=== PATIENT | male | born 1955 | race Caucasian/White ===

== ENCOUNTER 2019-01-26 16:27 | Inpatient (IN) | payer OTHER ==
[~2019-01-26] VITALS: Ht 172.7 cm; Wt 100.6 kg
[~2019-01-26 16:27] MED LIST: AMLO5 PO; ASPI325 PO; ATOR80 PO; CHLO25B PO; LISI20 PO; METO25 PO
[2019-01-26 16:58] LABS: BASOPHILS ABSOLUTE AUTO 0.05 K/mm3 (0.00-0.23); BASOPHILS PERCENT AUTO 0 % (0-2); EOSINOPHILS ABSOLUTE AUTO 0.13 K/mm3 (0.00-0.68); EOSINOPHILS PERCENT AUTO 1 % (0-6); Hematocrit 45.1 % (37.0-53.0); Hemoglobin 15.2 g/dL (13.5-17.5); IMMATURE GRAN ABSOLUTE AUTO 0.04 K/mm3 (0.00-0.10); IMMATURE GRAN PERCENT AUTO 0 % (0-1); LYMPHOCYTES ABSOLUTE AUTO 2.89 K/mm3 (0.84-5.20); LYMPHOCYTES PERCENT AUTO 26 % (21-46); MONOCYTES ABSOLUTE AUTO 0.82 K/mm3 (0.16-1.47); MONOCYTES PERCENT AUTO 7 % (4-13); Mean Corpuscular HGB 31.6 pg (26.0-34.0); Mean Corpuscular HGB Conc 33.7 g/dL (31.5-36.5); Mean Corpuscular Volume 94 fL (80-100); Mean Platelet Volume 10.1 fL (9.1-12.4); NEUTROPHILS ABSOLUTE AUTO 7.19 K/mm3 (1.96-9.15); NEUTROPHILS PERCENT AUTO 65 % (41-73); Platelet Count 215 K/mm3 (150-400); RDW Standard Deviation 41.8 fL (35.1-46.3); Red Blood Cell Count 4.81 M/mm3 (4.30-5.90); White Blood Cell Count 11.12 K/mm3 (4.00-11.30)
[2019-01-26 17:20] LABS: Albumin, Blood 3.6 g/dL (3.4-5.0); Albumin/Globulin Ratio 0.8 (0.8-1.8); Bilirubin, Total 0.9 mg/dL (0.1-1.0); Bun/Creatinine Ratio 16.8 (12.0-20.0); Calcium, Blood 8.7 mg/dL (8.5-10.1); Creatinine, Blood 1.37 mg/dL (0.60-1.20); Globulin, Blood 4.5 g/dL (2.2-4.0); Potassium, Blood 3.6 mmol/L (3.5-5.5); Total Protein, Blood 8.1 g/dL (6.4-8.2); Troponin I 0.169 ng/mL (0.000-0.040)
[2019-01-26 17:36] LABS: PCO2 Arterial 31.4 mmHg (35-45); PO2 Arterial 64.8 mmHg (80-100); pH Blood Arterial 7.46 (7.35-7.45)
[2019-01-26] MEDS ORDERED: HYDCHL25 PO (18:30)
[2019-01-26] MEDS ORDERED: CLON.1 PO (18:31)
--- NOTE | 2019-01-26 21:12 | NUR ---
ASSUMED PT CARE AT 1900 PT ARRIVED ON UNIT FROM ED SECONDARY TO PULMONARY EMBOLUS. PT IS ALERT AND ORIENTED. ABLE TO MAKE NEEDS KNOWN. OXYGEN AT 2L VIA NC WITH BIOX AT 97%. PT NOTED TO BECOME VERY SOB WITH MINIMAL EXERTION. HR 120'S WITH SINUS TACH NOTED ON HEART MONITOR. BP ELEVATED WITH SBP 180'S. PT APPEARS VERY NON-COMPLIANT WITH MEDICATIONS HE STATED HE "CHOOSES" WHEN HE WANTS TO BE DONE TAKING MEDICATIONS. STATES HE "HATES" TAKING MEDICATIONS AND FEELS HE DOESN'T NEED MOST OF WHAT HE IS TAKING. EDUCATION PROVIDED REGARDING CURRENT STATE OF AFFAIRS, WELL CURRENT VITAL SIGNS SHOWING OTHERWISE. EDUCATION PROVIDED REGARDING POSSIBLE OUTCOMES OF NON-COMPLIANCE WITH MEDICATIONS. PT APPEARS UNDERSTANDING, BUT CONTINUES TO REQUIRE REINFORCEMENT AND ONGOING EDUCATION. APPEARS KNOWLEDGABLE OF PT'S DISEASE PROCESSES AND WAS RECEPTIVE TO EDUCATION. HEPARIN GTT STARTED AT 15UNITS/KG/HR, WELL LR AT 100MLS/HR. PT DENIES ANY PAIN OR DISCOMFORT. CALL LIGHT WITHIN REACH AND HE IS ABLE TO MAKE NEEDS KNOWN.
[2019-01-26] MEDS ORDERED: FAMO40 PO (21:26)
[2019-01-26] MEDS ORDERED: LOSA50 PO (21:28)
--- NOTE | 2019-01-26 22:14 | NUR ---
PT NOTED TO BE COUGHING CONTINUOUSLY WITH NO RELIEF. NONPRODUCTIVE AND PT FEELS SOB AT REST. SAT ALL THE WAY UP IN BED. LUNG SOUNDS ARE CLEAR T/O ALL LOBES. BIOX 97% WITH OXYGEN AT 2L VIA NC. CALL PLACED TO MEHRDAD CARBAJAL. STATED SHE WOULD ENTER ORDERS FOR MORPHINE AND LOZENGES.
[2019-01-27 03:10] LABS: BASOPHILS ABSOLUTE AUTO 0.02 K/mm3 (0.00-0.23); BASOPHILS PERCENT AUTO 0 % (0-2); EOSINOPHILS PERCENT AUTO 1 % (0-6); Hematocrit 42.8 % (37.0-53.0); Hemoglobin 14.5 g/dL (13.5-17.5); IMMATURE GRAN ABSOLUTE AUTO 0.02 K/mm3 (0.00-0.10); IMMATURE GRAN PERCENT AUTO 0 % (0-1); LYMPHOCYTES ABSOLUTE AUTO 2.16 K/mm3 (0.84-5.20); LYMPHOCYTES PERCENT AUTO 23 % (21-46); MONOCYTES ABSOLUTE AUTO 0.81 K/mm3 (0.16-1.47); MONOCYTES PERCENT AUTO 9 % (4-13); Mean Corpuscular HGB 31.8 pg (26.0-34.0); Mean Corpuscular HGB Conc 33.9 g/dL (31.5-36.5); Mean Corpuscular Volume 94 fL (80-100); Mean Platelet Volume 9.8 fL (9.1-12.4); NEUTROPHILS ABSOLUTE AUTO 6.33 K/mm3 (1.96-9.15); NEUTROPHILS PERCENT AUTO 67 % (41-73); Platelet Count 207 K/mm3 (150-400); RDW Coefficient Variation 12.1 % (11.7-14.2); Red Blood Cell Count 4.56 M/mm3 (4.30-5.90); White Blood Cell Count 9.44 K/mm3 (4.00-11.30)
[2019-01-27 03:28] LABS: Alanine Aminotransfer (ALT/SGP 114 U/L (12-78); Albumin, Blood 3.4 g/dL (3.4-5.0); Albumin/Globulin Ratio 0.8 (0.8-1.8); Alk Phos 58 U/L (50-136); Anion Gap 10 mmol/L (6-16); Aspartate Aminotrans (AST/SGOT 55 U/L (12-37); Bilirubin, Total 0.6 mg/dL (0.1-1.0); Blood Urea Nitrogen 18 mg/dL (8-24); Bun/Creatinine Ratio 16.5 (12.0-20.0); CO2, Blood 23 mmol/L (21-32); Calcium, Blood 8.6 mg/dL (8.5-10.1); Chloride, Blood 109 mmol/L (98-108); Creatinine, Blood 1.09 mg/dL (0.60-1.20); Globulin, Blood 4.2 g/dL (2.2-4.0); Glomerular Filtration Rate >60 (60-); Glucose, Blood 104 mg/dL (70-99); Potassium, Blood 3.7 mmol/L (3.5-5.5); Sodium, Blood 142 mmol/L (136-145); Total Protein, Blood 7.6 g/dL (6.4-8.2)
--- NOTE | 2019-01-27 06:01 | NUR ---
END OF SHIFT SUMMARY NO SIGNIFICANT CHANGES SINCE ASSUMPTION OF CARE NOTE. PT IS UP IN RECLINER IT IS MORE COMFORTABLE FOR HIM. HE IS ABLE TO COMPLETELY REPOSITION SELF INDEPENDENTLY. NO C/O CHEST PAIN. HAS A VERY DRY, BUT PRODUCTIVE COUGH. UNABLE TO ASSESS SPUTUM, BUT PT STATES IT IS THICK AND CLEAR. LUNG SOUNDS REMAIN CLEAR T/O ALL LOBES. 2L VIA NC WITH BIOX >95%. PT C/O SOB WITH MINIMAL EXERTION. PT HAS BEEN SINUS TACHY T/O SHIFT; HR DOWN TO 105. HEPARIN GTT INFUSING AT 16UNITS/KG/HR PER PHARMACY CONSULT. CALL LIGHT WITHIN REACH. WILL CONTINUE TO MONITOR UNTIL REPORT IS HANDED OFF TO ONCOMING RN.
--- NOTE | 2019-01-27 08:00 | NUR ---
INITIAL ASSESMENT PT VERY PLEASENT, CALM AND COOPRATIVE, ALERT AND ORIENT TIMES FOUR AND FOLLOWING ALL COMMANDS. HYPERTENSIVE IN ST AND PALP PULSES T/O WITH NO EDEMA WITH HEPARIN QTT INFUSING PER MD ORDER. 2L NC WITH SATS WNL, CLEAR AND DIM BILAT WITH FREQUENT DRY STRONG NON PRODUCTIVE COUGH. TOLERATING DIET WITH ABD SOFT ROUND AND NON TENDER WITH BT'S T/O NO BM. VOIDING VIA URINAL CLEAR DARK FABIOLA URINE. SKIN INTACT. ECHO AND VENOUS US TO FOLLOW. WILL CONT TO MONITOR
--- NOTE | 2019-01-27 10:51 | NUR ---
ECHOCARDIOGRAM COMPLETED
--- NOTE | 2019-01-27 16:03 | NUR ---
PT UPDATE MD AT BEDSIDE TO CONSENT PATIENT FOR CARDIAC INTERVENTION
--- NOTE | 2019-01-27 21:00 | NUR ---
ASSUMED PT CARE AT 1900 PT ARRIVED FROM [employer]ITIES ANALYST WITH RIGHT GROIN SHEATH IN PLACE WITH TWO EKOS CATHETERS. EACH CATHETER HAD HEPARIN 2.5 UNITS/KG/HR WITH A RATE OF 5MLS/HR, TPA INFUSING AT 0.5MG/HR WITH A RATE OF 12.5MLS/HR, WELL NS TKO AT 30MLS/HR. RIGHT GROIN SITE WAS CDI WITH NO OOZING OR SIGNS OF HEMATOMA NOTED. LEFT GROIN SITE HOWEVER WAS NOTED TO HAVE A HEMATOMA; THEREFORE, KAREN NUÑEZ FROM SECURITIES ANALYST WAS APPLYING MANUAL PRESSURE. MANUAL PRESSURE HELD FOR APPROXIMATELY 10 MINUTES. HEMATOMA MARKED AND MEASURED APPROXIMATELY 3-5CM. NO OOZING NOTED. BRUISING AROUND SITE NOTED TO BE 1-2 CM IN DIAMETER. PT C/O SITE BEING VERY TENDER. MEDICATED WITH MORPHINE WITH NO RELIEF; THEREFORE, MEDICATED WITH VERSED IN WHICH APPEARED EFFECTIVE FOR PT. VSS; SEE FLOWSHEET. AT BEDSIDE. CALL LIGHT WITHIN REACH. WILL CONTINUE TO MONITOR SITES.
--- NOTE | 2019-01-28 05:32 | NUR ---
END OF SHIFT SUMMARY NO SIGNIFICANT CHANGES SINCE LAST ENTRY. RIGHT GROIN ACCESS REMAINS WITH TWO EKOS CATHETERS; HEPARIN INFUSING AT 2.5 UNITS/KG/HR OR 5MLS/HR, TPA AT 0.5MG/HR OR 12.5MLS/HR, AND NS AT 30MLS/HR. NO OOZING OR HEMATOMA NOTED AT SITE. LEFT GROIN SITE REMAINS WITH 3-5 CM IN DIAMETER HEMATOMA THAT HAS BEEN MARKED IN SIZE; NO FURTHER GROWTH. PT C/O SITE BEING TENDER AND SORE. VS REMAINED STABLE T/O SHIFT; SEE FLOWSHEET. PT HAS BEEN COMPLIANT WITH KEEPING RIGHT LEG STRAIGHT AND NOT BENDING NECK FORWARD. PT HAS BEEN BENDING LEFT LEG SLIGHTLY TO HELP SHIFT HIPS WHEN NEEDED AND LEFT GROIN SITE HAS REMAINED STABLE. LUNG SOUNDS REMAIN CLEAR TO BILATERAL UPPER LOBES AND DIMINISHED TO BILATERAL LOWER LOBES. 3L OF O2 VIA NC; BIOX 96%. PT HAS BEEN NSR TO SINUS TACHY WITH HR 90-110'S. MEDICATED WITH VERSED FOR PAIN/DISCOMFORT; EFFECTIVE. HAS BEEN AT BEDSIDE ALL NIGHT. WILL CONTINUE TO MONITOR UNTIL REPORT IS HANDED OFF TO ONCOMING RN.
[2019-01-28 06:51] LABS: BASOPHILS ABSOLUTE AUTO 0.03 K/mm3 (0.00-0.23); BASOPHILS PERCENT AUTO 0 % (0-2); EOSINOPHILS ABSOLUTE AUTO 0.23 K/mm3 (0.00-0.68); EOSINOPHILS PERCENT AUTO 3 % (0-6); Hematocrit 38.7 % (37.0-53.0); Hemoglobin 13.3 g/dL (13.5-17.5); IMMATURE GRAN ABSOLUTE AUTO 0.02 K/mm3 (0.00-0.10); IMMATURE GRAN PERCENT AUTO 0 % (0-1); LYMPHOCYTES ABSOLUTE AUTO 1.59 K/mm3 (0.84-5.20); LYMPHOCYTES PERCENT AUTO 21 % (21-46); MONOCYTES ABSOLUTE AUTO 0.58 K/mm3 (0.16-1.47); MONOCYTES PERCENT AUTO 8 % (4-13); Mean Corpuscular HGB 31.9 pg (26.0-34.0); Mean Corpuscular HGB Conc 34.4 g/dL (31.5-36.5); Mean Corpuscular Volume 93 fL (80-100); Mean Platelet Volume 10.2 fL (9.1-12.4); NEUTROPHILS ABSOLUTE AUTO 4.99 K/mm3 (1.96-9.15); NEUTROPHILS PERCENT AUTO 67 % (41-73); Platelet Count 181 K/mm3 (150-400); RDW Coefficient Variation 12.2 % (11.7-14.2); RDW Standard Deviation 41.9 fL (35.1-46.3); Red Blood Cell Count 4.17 M/mm3 (4.30-5.90); White Blood Cell Count 7.44 K/mm3 (4.00-11.30)
[2019-01-28 07:07] LABS: Anion Gap 8 mmol/L (6-16); Blood Urea Nitrogen 13 mg/dL (8-24); Bun/Creatinine Ratio 13.8 (12.0-20.0); CO2, Blood 26 mmol/L (21-32); Calcium, Blood 8.4 mg/dL (8.5-10.1); Chloride, Blood 108 mmol/L (98-108); Creatinine, Blood 0.94 mg/dL (0.60-1.20); Glomerular Filtration Rate >60 (60-); Glucose, Blood 93 mg/dL (70-99); Magnesium, Blood 1.8 mg/dL (1.6-2.4); Potassium, Blood 3.4 mmol/L (3.5-5.5); Sodium, Blood 142 mmol/L (136-145)
--- NOTE | 2019-01-28 08:00 | NUR ---
ASSUMED CARE NOTE: ASSUMED CARE OF PT @ 0700, RECEIVED REPORT FROM KALEB JONES. PT IS A/OX4. UPON ENTERING ROOM, PT IS ON 3L OF 02 VIA NC WITH SPO2 @ 100%, PT IS NOW PLACED ON RA W/ SPO2 ABOVE 94%. PT DENIES ANY SOB AT THIS TIME. PT IN NSR W/ HR @ 90 BPM. RIGHT FEMORAL EKOS CATH SITES INFUSING HEPARIN 2.5U/KG/HR, TPA 0.5MG/HR, AND NS @ 30ML/HR. SITE C/D/I NOP ACTIVE BLEEDING OR HEMATOMA NOTED. LEFT FEMORAL ENTRY SITE IS WIRELESS SALES EXPERT, 3-5CM HEMATOMA NOTED. PT DENIES ANY NUMBNESS OR TINGILING IN ALL EXTREMITES. BLE STRONG PULSES/PINK/WARM. SMALL HEMATOMA ON LEFT ARCH, PT STATES IT HAS BEEN THERE PRE ADMISSION. PT IS C/O PAIN TO RIGHT CATH SITE. PT MEDICATED PER EMAR, NEW ORDERS FOR FENTYNAL GIVEN. PT PLACED NPO AT 0800 FOR CATH PROCEDURE. AT BEDSIDE. WILL CONTINUE TO MONITOR T/O SHIFT.
--- NOTE | 2019-01-28 08:43 | NUR ---
UPDATE NOTE: TPA DC'D AT 0830. HEPRAIN CONTINUES @ 2.5U/KG/HR @ RIGHT FEMORAL SITE THROUGH TWO EKOS CATH.
--- NOTE | 2019-01-28 09:43 | NUR ---
UPDATE NOTE: CAME TO BEDSIDE AND REMOVED EKOS CATHETERS. ORDERED THAT HEPARIN BE TURNED OFF FOR 1 HOUR, TO BE RESUMED AT 1030. WILL DC FEMORAL SHEATHS AT BEDSIDE SHORTLY.
--- NOTE | 2019-01-28 11:20 | NUR ---
UPDATE: RIGHT GROIN SHEATHS WERE REMOVED @ 1117, MANUAL PRESSURE WAS HELD FOR 5 MIN UNITL HEMOSTASIS WAS ACHIVED. SITE WAS COVERED WITH GAUZE AND TEGADERM. SITE IS SOFT AND TENDER. WILL MONITOR T/O SHIFT.
--- NOTE | 2019-01-28 17:22 | NUR ---
SHIFT SUMMARY: NO ACUTE CHANGES SINCE LAST NOTE. PT REMAINS A&OX4, PT IS CURRENTLY ON RA WITH SPO2 ABOVE 94%. HOWEVER, PT REQUIRES 2L OF O2 VIA NC WHILE @ REST
--- NOTE | 2019-01-28 17:36 | NUR ---
SHIFT SUMMARY: NO MAJOR CHANGES SINCE LAST NOTE. PT CONTINUES TO BE A&OX4. PT CONTINUES TO BE HYPERTENSIVE DESPITE INITIATION OF HOME MEDS. HOWEVER, PT STATES THAT HE TENDS TO RUN " 170'S/110'S" PHYSICIAN IS AWARE. PT IS CURRENLTY ON RA WITH SP02 ABOVE 94%. NSR W/ HR IN THE 90'S, OCCASSIONAL IN SIT. PT REQUIRES 2L OF O2 VIA NC WHILE ASLEEP DUE TO A DECREASE IN SATS. RIGHT FEMORAL ACCESS SITE IS C/D/I WITH NO HEMATOMA OR ACTIVE BLEEDING NOTED. HEPRAIN @ 18U/KG/HR RUNNING THROUGH RT FA PERIPHERAL IV ORDERED. PT DENIES PAIN AT THIS TIME. PT HAS BEEN UP IN CHAIR FOR DINNER, AMBULATES WITH MINIMAL ASSISTANCE. WILL CONTINUE MONITOR UNTIL REPORT IS GIVEN TO ONCOMING SHIFT.
--- NOTE | 2019-01-28 19:15 | NUR ---
[place] of Care: Patient alert and oriented x4, sitting reclined in chair, watching TV. Denies pain, discomfort, SOB, or dyspnea. VSS, O2- 94-100% on 2L/NC. RT femoral vein site (from EKOs, removed on day shift) appears wnl. Heparin gtt infusing at 18u/kg/hr at shift change, increased to 19u/kg/hr per pharmacy order. Heparin gtt dosed at 82kg, rate and weight confirmed with EMAR and 2nd RN. Peripheral IV to rt forearm patent and intact, infusing without difficulty. Uses urinal to void without difficulty. Plan for sleep study tonight, implemented by RT [place]. Call light in reach, makes needs known. Will continue to monitor for pain, comfort, safety.
--- NOTE | 2019-01-29 02:59 | NUR ---
0300 PULLED SLEEP STUDY PT DID NOT ADEQUATELY SLEEP FOR ANY LENGTH OF TIME. PT MAY BENIFET FROM SOMETHING TO HELP HIM SLEEP AND REDO STUDY 01/29/19
[2019-01-29 05:09] LABS: BASOPHILS ABSOLUTE AUTO 0.03 K/mm3 (0.00-0.23); BASOPHILS PERCENT AUTO 0 % (0-2); EOSINOPHILS ABSOLUTE AUTO 0.32 K/mm3 (0.00-0.68); EOSINOPHILS PERCENT AUTO 4 % (0-6); Hematocrit 42.6 % (37.0-53.0); Hemoglobin 14.6 g/dL (13.5-17.5); IMMATURE GRAN ABSOLUTE AUTO 0.01 K/mm3 (0.00-0.10); IMMATURE GRAN PERCENT AUTO 0 % (0-1); LYMPHOCYTES ABSOLUTE AUTO 2.04 K/mm3 (0.84-5.20); LYMPHOCYTES PERCENT AUTO 28 % (21-46); MONOCYTES ABSOLUTE AUTO 0.56 K/mm3 (0.16-1.47); MONOCYTES PERCENT AUTO 8 % (4-13); Mean Corpuscular HGB 32.1 pg (26.0-34.0); Mean Corpuscular HGB Conc 34.3 g/dL (31.5-36.5); Mean Corpuscular Volume 94 fL (80-100); Mean Platelet Volume 10.3 fL (9.1-12.4); NEUTROPHILS ABSOLUTE AUTO 4.43 K/mm3 (1.96-9.15); NEUTROPHILS PERCENT AUTO 60 % (41-73); Platelet Count 225 K/mm3 (150-400); RDW Coefficient Variation 11.9 % (11.7-14.2); RDW Standard Deviation 40.9 fL (35.1-46.3); Red Blood Cell Count 4.55 M/mm3 (4.30-5.90); White Blood Cell Count 7.39 K/mm3 (4.00-11.30)
[2019-01-29 05:41] LABS: Anion Gap 9 mmol/L (6-16); Blood Urea Nitrogen 13 mg/dL (8-24); Bun/Creatinine Ratio 12.7 (12.0-20.0); CO2, Blood 26 mmol/L (21-32); Calcium, Blood 9.3 mg/dL (8.5-10.1); Chloride, Blood 107 mmol/L (98-108); Creatinine, Blood 1.02 mg/dL (0.60-1.20); Glomerular Filtration Rate >60 (60-); Glucose, Blood 106 mg/dL (70-99); Magnesium, Blood 2.2 mg/dL (1.6-2.4); Potassium, Blood 3.6 mmol/L (3.5-5.5); Sodium, Blood 142 mmol/L (136-145)
--- NOTE | 2019-01-29 07:20 | NUR ---
START OF SHIFT NOTE: RECEIVED REPORT FROM KAREN FERRO, ASSUMED CARE, PATIENT IS FOUND SLEEPING IN RECLYNER CHAIR, AWAKE, ALERT AND ORIENTED, SR/ST, LUNG SOUNDS ARE SLIGHTLY COARSE THROUGHOUT, MILDLY FIRM DISTENDED ABDOMEN, PER PATIENT THAT IS HIS BASELINE, RIGHT GROIN ACCESS SITE COVERED WITH GAUZE AND OPSITE, SMALL AMOUNT OF OLD DRAINAGE NOTED, NO BLEEDING, NONTENDER, NO HEMATOMA NOTED, PATIENT STATED "I CAN SLEEP BETTER IN THE RECLINER, IT IS BETTER FOR MY BACK AND I CAN STAND UP AND URINATE", DR. ANGULO IN TO SEE PATIENT AND DISCUSS FURTHER TREATMENT, CALL LIGHT IN REACH, WILL CONTINUE TO MONITOR.
--- NOTE | 2019-01-29 10:24 | NUR ---
PATIENT RESTING COMFORTABLY IN CHAIR, TALKING ON PHONE AND WATCHING TV, CALL LIGHT IN REACH, WILL CONTINUE TO MONITOR.
--- NOTE | 2019-01-29 10:43 | NUR ---
DR. WEBB IN TO SEE PATIENT, WILL SPEAK WITH DR. AGNULO ABOUT HEPARIN GTT AND POSSIBLE D/C HOME TOMORROW.
--- NOTE | 2019-01-29 12:51 | NUR ---
REPORT CALLED TO KATHRIN MYRICK RN, PATIENT WILL BE TRANSFERRED TO ROOM PCU 14 VIA WHEELCHAIR.
--- NOTE | 2019-01-29 18:43 | NUR ---
SHIFT NOTE PT HAS REMAINED INDEPENDANT T/O THE SHIFT. PT AWARE THAT WILL NBE GOING TO SLEEP STUDY TONIGHT, STS THAT HE NEEDS "THE MEDICATION WITH THE V" TO SLEEP TONIGHT "OR I WILL ONLY SLEEP AN HOUR". SLEEP STUDY WAS ATTEMPTED LAST NOC THAT WAS NOT SUCCESSFUL PT WOULD NOT REMAIN ASLEEP FOR STUDY. PT WITH HEPARIN INFUSING AT THIS TIME
--- NOTE | 2019-01-29 21:44 | NUR ---
2105 PTT 57.2; HEPARIN GTT REMAINS AT 21ML/HR, NO S/S BLEEDING NOTED, HAPPY AND COOPERATIVE.
[2019-01-30 05:24] LABS: BASOPHILS ABSOLUTE AUTO 0.03 K/mm3 (0.00-0.23); BASOPHILS PERCENT AUTO 1 % (0-2); EOSINOPHILS ABSOLUTE AUTO 0.26 K/mm3 (0.00-0.68); EOSINOPHILS PERCENT AUTO 5 % (0-6); Hematocrit 39.5 % (37.0-53.0); Hemoglobin 13.4 g/dL (13.5-17.5); IMMATURE GRAN ABSOLUTE AUTO 0.01 K/mm3 (0.00-0.10); IMMATURE GRAN PERCENT AUTO 0 % (0-1); LYMPHOCYTES ABSOLUTE AUTO 1.85 K/mm3 (0.84-5.20); LYMPHOCYTES PERCENT AUTO 36 % (21-46); MONOCYTES ABSOLUTE AUTO 0.36 K/mm3 (0.16-1.47); MONOCYTES PERCENT AUTO 7 % (4-13); Mean Corpuscular HGB 31.7 pg (26.0-34.0); Mean Corpuscular HGB Conc 33.9 g/dL (31.5-36.5); Mean Corpuscular Volume 93 fL (80-100); Mean Platelet Volume 10.3 fL (9.1-12.4); NEUTROPHILS ABSOLUTE AUTO 2.58 K/mm3 (1.96-9.15); NEUTROPHILS PERCENT AUTO 51 % (41-73); Platelet Count 228 K/mm3 (150-400); RDW Coefficient Variation 11.9 % (11.7-14.2); RDW Standard Deviation 41.3 fL (35.1-46.3); Red Blood Cell Count 4.23 M/mm3 (4.30-5.90); White Blood Cell Count 5.09 K/mm3 (4.00-11.30)
[2019-01-30 05:45] LABS: Anion Gap 8 mmol/L (6-16); Blood Urea Nitrogen 14 mg/dL (8-24); Bun/Creatinine Ratio 13.3 (12.0-20.0); CO2, Blood 27 mmol/L (21-32); Chloride, Blood 108 mmol/L (98-108); Creatinine, Blood 1.05 mg/dL (0.60-1.20); Glomerular Filtration Rate >60 (60-); Glucose, Blood 91 mg/dL (70-99); Potassium, Blood 3.6 mmol/L (3.5-5.5); Sodium, Blood 143 mmol/L (136-145)
--- NOTE | 2019-01-30 06:08 | NUR ---
SHIFT SUMMARY: 63 Y/O MALE RESTED COMFORTABLY ALL SHIFT; NO S/S OF BLEEDING NOTED OR VOICED; HAPPY AND COOPERATIVE; DENIES PAIN OR NAUSEA; SLEEP STUDY CONDUCTED THIS SHIFT; HEPARIN INFUSING WITHOUT ISSUE; BED LOW POSITION WITH CALL LIGHT AT SIDE.
--- NOTE | 2019-01-30 11:41 | NUR ---
PT AMBULATED WITH RT FOR HOME O2 EVAL WHICH WAS TOLERATED WELL ON RA
[2019-01-30] MEDS ORDERED: XARELTO15 MG PO (13:13)
--- NOTE | 2019-01-30 14:20 | NUR ---
PT PROVIDED WT DC TEACHING, PT EXPRESSED UNDERSTANDING OF DC TEACHING AND SIDE EFFECTS. RX FAXED TO [facility], PT IS AWARE. PT PROVIDED WITH ALL BELONGINGS. PT OTD VIA W/C
[2019-02-02 00:06] LABS: ACT. PRT C RESIST W/FV DEFIC. 2.6 ratio (.); APTT 32.2 sec (.); DRVVT SCREEN SECONDS 34.7 sec (.); FACTOR VIII ACTIVITY 111 % (.); HEXAGONAL PHOSPHOLIPID NEUTRAL 10 sec (.); HOMOCYSTEINE 5.7 umol/L (.); PRT C ACTIVITY (CHROMOGENIC) 34 % (.)
== END 2019-01-30 14:23 | disposition home or self-care (01) | DRG 175 ==
LOC: ER 16:27 → ICUW 18:26 → ICUE 18:26 → PCU 01-29 13:15
PROVIDERS: Emergency Medicine; Internal Medicine; Nurse Practitioner Acute Care; ADMIT Internal Medicine
PROC: 06H033Z Insertion of Infusion Device into Inferior Vena Cava, Percutaneous Approach (ICD-10-PCS; principal; 2019-01-27)
PROC: 3E05317 Introduction of Other Thrombolytic into Peripheral Artery, Percutaneous Approach (ICD-10-PCS; 2019-01-27)
DX: I26.09 Other pulmonary embolism with acute cor pulmonale (principal); N17.9 Acute kidney failure, unspecified; I82.402 Acute embolism and thrombosis of unspecified deep veins of left lower extremity; I10 Essential (primary) hypertension; R79.89 Other specified abnormal findings of blood chemistry; G47.34 Idiopathic sleep related nonobstructive alveolar hypoventilation; Z86.73 Personal history of transient ischemic attack (TIA), and cerebral infarction without residual deficits; R74.8 Abnormal levels of other serum enzymes; E87.6 Hypokalemia
CPT/HCPCS: 36014; 36415; 36600; 37211; 71046; 71260; 75743; 75746; 75825; 80048; 80053; 81240; 82803; 83090; 83735; 83880; 84484; 85025; 85240; 85300; 85303; 85306; 85307; 85379; 85384; 85613; 85730; 85732; 86146; 86147; 93005; 93010; 93306; 93970; 94761; 94762; 99152; 99153; 99285-25; A9270; C1757; C1769; C1894; G0103; J1644; J2250; J2270; J3010; J7030; J7040; J7120; Q9967